=== PATIENT | male | born 1960 | race Hispanic/Latino ===

== ENCOUNTER 2020-04-22 06:38 | Outpatient (CLI) | payer BC ==
[2020-04-22] MEDS ORDERED: SODIUM CHLORIDE 0.9% 500 ML 500 ML IV SCH (07:00)
[2020-04-22] MEDS ORDERED: BENZOCAINE 20% TOP SPRAY 0.5 ML UNIT DOSE MM NR (07:00)
[2020-04-22 07:11] LABS: Basophils # (Auto) 0.1 K/mm3 (0.0-0.1); Basophils % (Auto) 1.1 % (0.0-1.8); Eosinophils # (Auto) 0.4 K/mm3 (0.0-0.4); Eosinophils % (Auto) 4.6 % (0.0-4.3); Hematocrit 48.5 % (35.5-45.6); Hemoglobin 16.4 gm/dl (11.8-15.2); Lymphocytes # (Auto) 2.3 K/mm3 (1.2-5.4); Mean Corpuscular HGB Conc 34 % (32-34); Mean Corpuscular Volume 90 fl (84-94); Monocytes # (Auto) 0.9 K/mm3 (0.0-0.8); Monocytes % (Auto) 11.8 % (0.0-7.3); Platelet Count 355 K/mm3 (140-440); Red Blood Count 5.41 M/mm3 (3.65-5.03); Red Cell Distribution Width 13.3 % (13.2-15.2)
[2020-04-22 07:26] LABS: INR 0.93 (0.87-1.13); Partial Thromboplastin Time 28.3 Sec. (24.2-36.6)
[2020-04-22 07:28] LABS: BUN/Creatinine Ratio 13; Blood Urea Nitrogen 10 mg/dL (9-20); Calcium 9.7 mg/dL (8.4-10.2); Hemolysis Index 3
--- NOTE | 2020-04-22 08:10 | Anesthesia Consultation ---
Anesthesia Consult and Med Hx Date of service: 04/22/20 - Airway Anesthetic Teeth Evaluation: Good, Chipped (some broken off teeth in the back) ROM Head & Neck: Adequate Mental/Hyoid Distance: Adequate Mallampati Class: Class III Intubation Access Assessment: Possibly Difficult - Pre-Operative Health Status ASA Pre-Surgery Classification: ASA3 Proposed Anesthetic Plan: MAC - Pulmonary Hx Smoking: Yes (socially, "long time ago") Hx Sleep Apnea: Yes (scheduled for sleep in 2 weeks) - Cardiovascular System Hx Hypertension: Yes Hx Coronary Artery Disease: No (high cholesterol) Hx Angina: No (atrial mass on TTE) - Central Nervous System Hx Psychiatric Problems: No - Other Systems Hx Cancer: No Hx Obesity: Yes (Morbid obesity BMI 44.0)
--- NOTE | 2020-04-22 08:11 | Anesthesia Day of Surgery ---
Anesthesia Day of Surgery - Day of Surgery Patient Examined: Yes Patient H&P Reviewed: Yes Patient is NPO: Yes
[2020-04-22] MEDS ORDERED: propofoL 200 MG/20 ML VIAL IV ONE ×2 (08:24)
[2020-04-22] MEDS ORDERED: LIDOCAINE MPF (2%) 20 MG/1 ML VIAL 5 ML ONE (09:04)
--- NOTE | 2020-04-22 09:17 | Short Stay Summary ---
Short Stay Documentation Date of service: 04/22/20 - History H&P: obtained from office - Allergies and Medications Current Medications: Allergies neomycin Allergy (Verified 04/22/20 07:08) Hives Home Medications Medication Instructions Recorded Confirmed Last Taken Type Aspirin [Adult Aspirin] 81 mg PO DAILY 04/22/20 04/22/20 04/22/20 05:00 History AtorvaSTATin [Lipitor] 20 mg PO DAILY 04/22/20 04/22/20 04/22/20 05:00 History Cholecalciferol (Vitamin D3) 5,000 unit PO DAILY 04/22/20 04/22/20 04/22/20 05:00 History [Vitamin D3] Omeprazole Magnesium [PriLOSEC Otc] 20 mg PO QDAY 04/22/20 04/22/20 04/22/20 05:00 History Valsartan [Diovan] 320 mg PO QDAY 04/22/20 04/22/20 04/22/20 05:00 History amLODIPine [Norvasc] 10 mg PO DAILY 04/22/20 04/22/20 04/22/20 05:00 History cloNIDine [Catapres] 0.2 mg PO QHS 04/22/20 04/22/20 04/21/20 History hydroCHLOROthiazide [HCTZ] 25 mg PO QDAY 04/22/20 04/22/20 04/22/20 05:00 History Active Medications Benzocaine (Hurricaine One 20% Topical [place]) 3 spray MM PREOP NR Stop: 04/22/20 23:59 Last Admin: 04/22/20 08:32 Dose: 3 spray Documented by: Sodium Chloride (Nacl 0.9% 500 Ml) 500 mls @ 50 mls/hr IV DIRECT DANIELE Last Admin: 04/22/20 07:19 Dose: 50 mls/hr Documented by: - Brief post op/procedure progress note Date of procedure: 04/22/20 Pre-op diagnosis: r/o right atrail mass Post-op diagnosis: other (lipotmaous septum) Procedure: see report Anesthesia: local Estimated blood loss: none Pathology: none - Disposition Condition at discharge: Good Disposition: DC-01 TO HOME OR SELFCARE - Discharge Diagnoses (1) HTN (hypertension) Status: Chronic Qualifiers: Hypertension type: essential hypertension Qualified Code(s): I10 - Essential (primary) hypertension (2) SOB (shortness of breath) on exertion Status: Chronic Short Stay Discharge Plan Activity: advance as tolerated Diet: low fat, low cholesterol Follow up with: [facility] [Other] - 7 Days
--- NOTE | 2020-04-22 10:49 | Post Anesthesia Evaluation ---
- Post Anesthesia Evaluation Patient Participated: Yes Airway Patent: Yes Stable Respiratory Function: Yes Nausea/Vomiting: No Temp > 96.8F: Yes Pain Manageable: Yes Adequeate Hydration: Yes Anesthesia Complications: No
[2020-04-22 11:08] VITALS: BP 142/82
== END 2020-04-22 11:28 | disposition home or self-care (01) ==
LOC: CATHLABREC 06:38
DX: I08.0 Rheumatic disorders of both mitral and aortic valves (principal)
CPT/HCPCS: 36415; 80048; 85025; 85610; 85730; 93312; 93320; 93325; J2704; J7040; U0003